=== PATIENT | female | born 1980 | race Caucasian/White ===

== ENCOUNTER 2017-03-11 02:03 | Inpatient (IN) | payer OTHER ==
[~2017-03-11] VITALS: Ht 163.8 cm; Wt 71.0 kg
[2017-03-11] MEDS ORDERED: ZANTAC 7575 MG PO (02:39)
[2017-03-11] MEDS ORDERED: VITAFOL-OB+DHA1 EACH PO (02:40)
[2017-03-11] MEDS ORDERED: FOLIC ACID20 MG PO (02:40)
--- NOTE | 2017-03-11 04:30 | NUR ---
03/11/17 0430 Brooklyn Jones BABY TO BREAST W/FBC RN ASSIST. CAREGIVER IN TO BS.
--- NOTE | 2017-03-12 10:41 | OR ---
[facility] [address], [place] [address] Signed DATE OF SERVICE: 03/11/[address] Quinones. PREOPERATIVE DIAGNOSES: Term , previous section x3, spontaneous rupture of membranes. Positive amphetamines on urine drug screen. POSTOPERATIVE DIAGNOSES: Term , previous section x3, spontaneous rupture of membranes. Positive amphetamines on urine drug screen. PROCEDURE: Repeat low transverse segment section, delivery of a live male . SURGEON: Ladarius Quinones MD. SUPERVISOR FELLING BUCKING: Yeni Wiggins MD. ANESTHESIA: Spinal. ESTIMATED BLOOD LOSS: 500 mL. COMPLICATIONS: None. DRAINS: Cruz to bladder. FINDINGS: Live male infant. Normal uterus. Left tube was normal length and normal appearing fimbriated end and no adhesions. The left ovary is normal size and shape without any adhesions. The right tube showed evidence of previous salpingectomy with the midportion of the tube missing. There were no adhesions. Right ovary is normal size and shape without any evidence of adhesions. There were several omental adhesions along the midline anterior abdominal wall. There is also some scarring and omental adhesions all the way down to the bladder. There were some bands of tissue in the lower segment from the lower uterine segment of the uterus to the anterior cul- de-sac. DESCRIPTION OF PROCEDURE: The patient was brought in the operating room, placed in the supine position. After adequate spinal anesthesia was obtained. The patient was prepped and draped in usual Electronically Signed By: LADARIUS QUINONES MD 03/12/17 1041 PATIENT NAME: MAGALY SAPP OPERATIVE REPORT DATE OF : 82 PHYSICIAN: LADARIUS QUINONES MD REPORT #: [id number] REPORT IS CONFIDENTIAL AND NOT TO BE RELEASED WITHOUT AUTHORIZATION [facility] [address], [place] [address] Signed sterile fashion. Cruz catheter was placed in the bladder. Skin incision was made with a scalpel through previous surgical scar. Subcutaneous tissue was dissected with the Bovie and the scalpel. The fascia nicked with scalpel and extended in transverse fashion using curved scissors. The underlying abdominal musculature was bluntly sharply from the fascia. The abdominal musculature was densely adherent to the fascia and the peritoneum, so the opening was made in the abdomen high up on the abdomen and the rest of the incision opened along the midline. There were several omental adhesions which were on either side of midline and down to the anterior cul-de-sac. The incision was taken down until the Zack self retractor could be inserted into the incision. The Bovie was used to take down to different bands of adhesion from the lower uterine segment to the anterior cul-de-sac. The lower uterine segment was then carefully nicked with the scalpel and bulging bag and clear fluid was noted in the incision. The incision was extended in transverse fashion using finger dissection. The bag was ruptured and the was noted to be in vertex presentation and easily delivered from the incision. There was cord around the neck. Once this was removed, the rest of the infant was easily delivered from the incision. Mouth and nose were suctioned with bulb syringe. The cord was doubly clamped and cut. The was passed off table in good condition to awaiting nurse. Sample of cord was sent for drug screen. The placental was manually removed and uterine cavity explored a lap pad to remove retained membranes. Angle stitch of 0-Monocryl was placed in one incision in a running locking stitch of 0 Monocryl starting at the other end used to close the incision. There was extension on the left side downward and lateral, this was controlled with an additional running locking stitch of 0 Monocryl. A 2nd running locking stitch of 0 Monocryl incorporating both stitches were used to close the abdomen. There was still some bleeding on the left side above the dissection and this was controlled with several [id number] stitches and a small running locking stitch of 0 Monocryl. Good hemostasis was then obtained. Because of the raw nature from the previous adhesions, this was carefully observed. The entire pelvis was irrigated, suctioned, examined and noted to have good hemostasis. The Zack self-retaining retractor was removed and Evicel was then placed in the left lower quadrant in the area of multiple stitches from the extension in the raw area to help with bleeding. The sheet of A -cell was placed over the lower uterine segment to help with healing. There were 3 remaining omental adhesions, these were clamped with Irina clamps, cut, and each side tied with 2-0 chromic suture. With these cut, the peritoneum was then closed using running stitch of 2-0 Vicryl suture. This incorporated the most of the muscle with a peritoneum. The remaining abdominal musculature was reapproximated using interrupted stitches of 0 Vicryl suture. The entire abdominal wall incision was then irrigated, suctioned, examined. Any bleeding spots were cauterized with the Bovie. Powdered A-cell sprinkled on the abdominal musculature to help with healing and then the fascia closed using 2 running stitch of 0 Vicryl suture meeting in the midline. Subcutaneous tissue was irrigated, suctioned, examined. Any bleeding spot was cauterized with the Bovie. The subcutaneous tissue was then closed using interrupted stitches of 3-0 Vicryl sutures. The skin reapproximated with skin clips. The patient tolerated the Electronically Signed By: LADARIUS QUINONES MD 03/12/17 1041 PATIENT NAME: MAGALY SAPP OPERATIVE REPORT DATE OF : 82 PHYSICIAN: LADARIUS QUINONES MD REPORT #: [id number] REPORT IS CONFIDENTIAL AND NOT TO BE RELEASED WITHOUT AUTHORIZATION [facility] [address], [place] [address] Signed procedure well and went to recovery room in good condition. The sponge, needle, and instrument counts correct at the end of procedure. The Cruz catheter was then replaced due to inadvertent latex Cruz having been placed preoperatively. No swelling or any allergic reaction was noted at the time of the replacement. The patient went to recovery room in good condition. MD MAY Denney/Modl /[id number] cc: Ned Sibley DO Electronically Signed By: LADARIUS QUINONES MD 03/12/17 1041 PATIENT NAME: MAGALY SAPP OPERATIVE REPORT DATE OF : 82 PHYSICIAN: LADARIUS QUINONES MD REPORT #: [id number] REPORT IS CONFIDENTIAL AND NOT TO BE RELEASED WITHOUT AUTHORIZATION
== END 2017-03-11 11:45 | disposition left against medical advice (07) | DRG 765 ==
LOC: FBCO 02:03 → FBC 02:24 → FBCO 03-23 14:35
PROVIDERS: ADMIT General Practice
PROC: 10D00Z1 Extraction of Products of Conception, Low, Open Approach (ICD-10-PCS; principal; 2017-03-11 03:13)
DX: O34.211 Maternal care for low transverse scar from previous cesarean delivery (principal); O99.324 Drug use complicating childbirth; Z3A.38 38 weeks gestation of pregnancy; Z37.0 Single live birth; O42.02 Full-term premature rupture of membranes, onset of labor within 24 hours of rupture; O69.81X0 Labor and delivery complicated by cord around neck, without compression, not applicable or unspecified
CPT/HCPCS: 01961; 85027; C1763; G0480; J0690; J1100; J2250; J2274; J2370; J2405; J2590; J2704; J3010; J7120

== ENCOUNTER 2017-03-11 23:16 | Observation (INO) | payer OTHER ==
[~2017-03-11] VITALS: Ht 165.1 cm; Wt 70.8 kg
[~2017-03-11 23:16] MED LIST: FOLIC ACID20 MG PO; VITAFOL-OB+DHA1 EACH PO; ZANTAC 7575 MG PO
--- NOTE | 2017-03-12 01:40 | NUR ---
PT ARRIVED FROM ER VIA STRETCHES. ATTEMPTED TO OBTAIN ADMISSION HX FROM PT, PT IS VERY DROWSY. WILL AWAKE TO REPEATED VOICE AND TOUCH BUT QUICKLY RETURNS TO SLEEPING. PT GIVEN SANDWHICH AND WATER. PT ABLE TO EAT HALF OF SANDWHICH WITH CONSTANT ENCOURAGMENT. SL IN THE R AC. ABD DRSG CLEAN, DRY AND INTACT. MILD VAGINAL BLEEDING NOTES, ERICH PAD IN PLACE. LÓPEZ IN PLACE DRAINING CLEAR YELLOW URINE. WILL CONTINUE TO MONITOR PT. CALL LIGHT WITHIN REACH.
--- NOTE | 2017-03-12 04:25 | NUR ---
IN TO CHECK ON PT, PT APPEARS TO BE RESTING. NO APPARENT DISTRESS. LÓPEZ IN PLACE. CALL LIGHT WITHIN REACH.
--- NOTE | 2017-03-12 04:31 | NUR ---
PT ARRIVED TO FLOOR AT APPROX. 0115 FROM ER. PT HAS BEEN VERY DROWSY AND SLEPT THROUGH THE SHIFT. UNABLE TO OBTAIN FULL ADMISSION HX, PT IS A POOR HISTORIAN AND DROWSY. PT ON REGULAR DIET, LITTLE INTAKE. LÓPEZ IN PLACE. DRSG CLEAN DRY AND INTACT. SLIGHT VAGINAL BLEEDING NOTED. CALL LIGHT WITHIN REACH.
--- NOTE | 2017-03-12 05:21 | NUR ---
PT CALLED,REQUESTED PAIN MEDICATION. PT RATES ABD PAIN /10, REQUEST TYLENOL FOR PAIN. WHEN RETURNING TO THE ROOM, PT VISIBLY IN PAIN, MOVING LEGS IN BED AND ATTEMPTING TO COUGH. TEACHING DONE REGARDING SPLINTING ABD WITH PILLOW OR BLANKET WHEN COUGHING. WARM BLANKETS GIVEN FOR COMFORT. PT AWAKE AND SPEAKING. DIFFICULT TO FOLLOW PT. PT STATES "I HAVE COURT THIS MORNING FOR MY BABY". PT ATTEMPTING TO TURN ON CELL PHONE. PT BECAME TEARFUL STATING THAT "MY PHONE IS DELETING ALL OF THE PICTURES I HAVE OF MY BABY". PT COMFORTED. APPEARS TO BE MORE COMFORTABLE, ATTEMPTING TO REST. CALL LIGHT WITHIN REACH.
--- NOTE | 2017-03-12 08:05 | NUR ---
MORNING ASSESSMENT DONE. PATIENT SITTING UP IN BED TO EAT BREAKFAST. TRANSVERSE ABD INCISION COVERED WITH DRESSING, CDI. PATIENT ON PHONE AND TEARFUL ABOUT BABY AND PENDING COURT APPEARANCE TODAY. ENCOURAGED PATIENT TO STAY UNTIL DR. ISABEL SAW HER TODAY.
--- NOTE | 2017-03-12 08:47 | NUR ---
MED REC COMPLETE
--- NOTE | 2017-03-12 09:40 | NUR ---
PT IN BED SLEEPING. UPDATED BOARD. RR 16, APPEARS COMFORTABLE. REPORT RECIEVED FROM RUSTY VANG.
--- NOTE | 2017-03-12 10:30 | NUR ---
TALKED TO PT SENIOR ELECTRONICS TECHNICIAN. SHE STATES THE PT WOULD LIKE TO GO TO HER COURT APPEARANCE EVEN AFTER GIVEN THE OPTION OF PHONE IN APPEARANCE. TALKED TO PT ABOUT DOING PHONE IN, SHE AGAIN REFUSED. DR ZHENG IN TO TALK TO PT, STATES THAT HE IS NOT MEDICALLY CLEARING HER FOR DISCHARGE. PT AGAIN STATED SHE WAS LEAVING. REMOVED LÓPEZ AND SECURITY AND PRIVACY CONSULTANT WILL REMOVED IV. PT SHOWERING WITH SECURITY AND PRIVACY CONSULTANT'S HELP.
--- NOTE | 2017-03-12 10:52 | NUR ---
EXPLAINED TO PT THE SIGNIFICANCE OF LEAVING AMA. THE RISKS INVOLVED AND THAT WE WOULD BE MORE THAN HAPPY TO ASSIST IN HELPING EHR CALL THE COURTS, AGAIN REFUSED. RUSTY VANG WALKED PT OUT AFTER PT REFUSED THE WHEELCHAIR. ERIKA AND RENE REMOVED WNL. TYLENOL GIVEN.
== END 2017-03-12 11:00 | disposition left against medical advice (07) ==
LOC: ED 23:16 → MS 23:17
PROVIDERS: ADMIT Obstetrics & Gynecology
DX: O99.89 Other specified diseases and conditions complicating pregnancy, childbirth and the puerperium (principal); R10.9 Unspecified abdominal pain; M25.511 Pain in right shoulder; O14.95 Unspecified pre-eclampsia, complicating the puerperium; O99.335 Smoking (tobacco) complicating the puerperium; F17.200 Nicotine dependence, unspecified, uncomplicated; Z88.5 Allergy status to narcotic agent; Z88.0 Allergy status to penicillin; Z91.040 Latex allergy status; Z98.890 Other specified postprocedural states; Z53.21 Procedure and treatment not carried out due to patient leaving prior to being seen by health care provider; Z59.0 Homelessness
CPT/HCPCS: 51702; 51798; 71020; 74177; 80053; 81001; 85025; 85610; 85730; 86850; 86900; 86901; 86920; 96361; 96374; 99285; G0378; J1170; J2405; J7030; Q9967

== ENCOUNTER 2017-04-12 10:30 | Emergency (ER) | payer OTHER ==
[~2017-04-12] VITALS: Ht 165.1 cm; Wt 70.8 kg
== END 2017-04-12 10:50 | disposition home or self-care (01) ==
LOC: ED 10:30
DX: Z00.8 Encounter for other general examination (principal)